=== PATIENT | male | born 1975 | race Caucasian/White ===

== ENCOUNTER 2021-01-02 09:27 | Emergency (ER) | payer BC, SELFPAY ==
[2021-01-02 09:32] VITALS: BP 139/82; PULSE 68; RESP 20; TEMP 36.1; O2SAT 98
--- NOTE | 2021-01-02 09:39 | ED.EYEPROB ---
HPI - Eye Problem General Chief complaint: Eye Problems Stated complaint: Swollen left Eye Time Seen by Provider: 01/02/21 09:40 Source: patient and family History of Present Illness HPI Narrative: PATIENT PRESENTS WITH LEFT EYE DRAINAGE AND LOWER LID SWELLING NO INJURY NO VISION LOSS. PATIENT REPORTS WORKING OUT IN THE YARD YESTERDAY AND THINKS HE HAS POISON LIZZIE TO HIS LEFT LOWER LEG AND FEELS THAT HE SCRATCHED HIS LEG IN HIS SLEEP AND THEN RUBBED HIS EYE. EYE MATTED SHUT THIS AM AND SOME SWELLING BELOW EYE. chief complaint: eye redness Place: home Associated symptoms: none Treatments Prior to Arrival: none Related Data Allergies Allergy/AdvReac Type Severity Reaction Status Date / Time No Known Allergies Allergy Unknown Verified 01/02/21 09:42 Review of Systems Review of Systems: Narrative: CONSTITUTIONAL: Denies fever, chills, or sweats. EYES: Denies visual changes, redness, or discharge. ENT: Denies rhinorrhea, congestion, sore throat, or otalgia. CARDIOVASCULAR: Denies chest pain, palpitations, or edema. RESPIRATORY: Denies cough or dyspnea. GASTROINTESTINAL: Denies abdominal pain, nausea, vomiting, or diarrhea. GENITOURINARY: Denies dysuria or hematuria. SKIN: Denies rash or itching. MUSCULOSKELETAL: Denies back pain, joint pain, or myalgia. NEUROLOGIC: Denies headache, numbness, or weakness. PSYCHIATRIC: Denies anxiety or depression. PMFSH Comments At time of signature, agree with nursing past medical, surgical, social and family history. There is no relevant family history pertinent to the presenting complaint Exam Narrative: Exam Narrative: GENERAL: Well-appearing, well-nourished, and in no acute distress. HEAD: Normocephalic, atraumatic. EYES: PERRLA and EOMI. ENT: Nares clear, no rhinorrhea or epistaxis. Mucous membranes moist. NECK: Supple. CHEST: Clear to auscultation. No respiratory distress. HEART: Regular rate and rhythm. No murmur heard. Normal peripheral pulses. ABDOMEN: Soft, nontender, nondistended, normal active bowel sounds. EXTREMITIES: Normal range of motion. No edema. SKIN: Warm, dry, no rash. NEURO: No focal deficits. Alert and oriented x3. [place] Coma Scale Eye Opening: Spontaneous 4 Elaine Coma Scale Motor: Obeys Commands 6 [place] Coma Scale Verbal: Oriented 5 Elaine Coma Scale Total 15 Eyes: Periorbital: periorbital findings abnormal (SLIGHT SWELLING BELOW LEFT EYE) Conjunctivae: conjunctival abnormality (SCANT DRAINAGE TO CORNER OF LEFT EYE AND CONJUCTIVITIS TO LEFT EYE) Sclera: sclerae normal Cornea: corneas normal Pupils: Equal, round and reactive pupils present EOM: EOMs intact bilaterally Direct Ophthalmoscopy: normal light reflex Eyes/upper lids images: 1. SLIGHT SWELLING 2. SCANT DRAINAGE Course Vital Signs Vital signs: Vital Signs Temperature 36.1 C L 01/02/21 09:32 Pulse Rate 68 01/02/21 09:32 Respiratory Rate 20 01/02/21 09:32 Blood Pressure 139/82 01/02/21 09:32 Pulse Oximetry 98 01/02/21 09:32 Temperature 36.1 C L 01/02/21 09:32 Pulse Rate 68 01/02/21 09:32 Respiratory Rate 20 01/02/21 09:32 Blood Pressure 139/82 01/02/21 09:32 Pulse Oximetry 98 01/02/21 09:32 Please MARINA schedule a followup visit with your personal physician for further evaluation and treatment. Including recheck and discussion of your blood pressure. If your symptoms persist, change or worsen significantly before you can contact your personal physician then please, without delay, go to the emergency department for further evaluation Critical dx considered and discussed with pt. Educated patient on red flag s/s and to go to ED if s/s occur. Discussed with pt when to return to Express Care or primary care provider. Pt gave verbal undertstanding, all questions were answered, and pt was agreeable to plan MDM - Eye Problem Differential Diagnosis Differential diagnosis: Likely corneal abrasion, conjunctivitis, acute iritis, hyphema, periorbital cellul
== END 2021-01-02 09:58 | disposition home or self-care (01) ==
PROVIDERS: Emergency Provider Nurse Practitioner Family
DX: L03.213 Periorbital cellulitis (principal); H10.9 Unspecified conjunctivitis
CPT/HCPCS: 99213; G0463

== ENCOUNTER 2022-03-01 08:03 | Emergency (ER) | payer BC, SELFPAY ==
[2022-03-01 08:07] VITALS: BP 140/89; PULSE 75; RESP 16; TEMP 36.1; O2SAT 97
--- NOTE | 2022-03-01 08:15 | ED.URI ---
HPI - URI/Sore Throat General Chief Complaint: Upper Respiratory Infection Stated Complaint: sore throat Time Seen by Provider: 03/01/22 08:10 Source: patient and RN notes reviewed History of Present Illness HPI Narrative: Patient is a 46-year-old male who presents the urgent care with complaints of a sore throat and mild cough. Patient states that it started yesterday with fatigue and woke up with a severe sore throat. Patient states that his son at home is currently positive for strep and was diagnosed on . Patient denies any fevers or other upper respiratory complaints. No acute distress noted. Patient aware of plan of care. Some parts of this dictation were generated by voice recognition software and may contain typographical and/or grammatical inaccuracies. Related Data Allergies Allergy/AdvReac Type Severity Reaction Status Date / Time No Known Allergies Allergy Unknown Verified 03/01/22 08:14 Review of Systems Review of Systems: CONSTITUTIONAL: Denies fever, chills, or sweats. EYES: Denies visual changes, redness, or discharge. ENT: Denies rhinorrhea, congestion, otalgia. Reports of sore throat CARDIOVASCULAR: Denies chest pain, palpitations, or edema. RESPIRATORY: Denies cough or dyspnea. GASTROINTESTINAL: Denies abdominal pain, nausea, vomiting, or diarrhea. GENITOURINARY: Denies dysuria or hematuria. SKIN: Denies rash or itching. MUSCULOSKELETAL: Denies back pain, joint pain, or myalgia. NEUROLOGIC: Denies headache, numbness, or weakness. All other systems reviewed are negative, except as documented in HPI. PMFSH Comments At the time of my signature, I reviewed and agree with the nursing past medical, surgical, social, and family history. There is no relevant family history pertinent to the patient complaint. Exam Narrative: GENERAL: This is a well-nourished, well-developed patient, in no apparent distress. HEAD: normocephalic, atraumatic. EYES: PERRL. Sclera clear/white. Vision is grossly intact. EARS: External ears normal, auditory canals clear and without drainage, cerumen noted bilaterally. TMs normal without perforation. Hearing grossly intact. NOSE: External nose normal with no obvious nasal discharge, nares without redness, no rhinorrhea. THROAT: Mucous membranes moist. Moderate erythema noted posterior pharynx with moderate postnasal drainage without exudate or ulceration NECK: Neck supple, non-tender bilateral submandibular lymphadenopathy CARDIOVASCULAR: Regular rate and rhythm without murmurs, gallops, or rubs. RESPIRATORY: Clear to auscultation. Breath sounds equal bilaterally. No wheezes, rales, or rhonchi. SKIN: warm, intact with no suspicious lesions or rash, good texture and turgor. NEURO: awake, alert, and oriented to person, place and time. There were no obvious focal neurologic abnormalities. EXTREMITIES: No clubbing, cyanosis, or edema. Course Course Level of Care: Express Care Visit Vital Signs Vital signs: Vital Signs Temperature 96.9 F L 03/01/22 08:07 Pulse Rate 75 03/01/22 08:07 Respiratory Rate 16 03/01/22 08:07 Blood Pressure 140/89 03/01/22 08:07 Pulse Oximetry 97 03/01/22 08:07 Oxygen Delivery Room Air 03/01/22 08:07 Temperature 96.9 F L 03/01/22 08:07 Pulse Rate 75 03/01/22 08:07 Respiratory Rate 16 03/01/22 08:07 Blood Pressure 140/89 03/01/22 08:07 Pulse Oximetry 97 03/01/22 08:07 Oxygen Delivery Room Air 03/01/22 08:07 Reviewed MDM - URI/Sore Throat MDM Narrative Medical decision making narrative: Advised the patient to complete the oral antibiotic regimen as prescribed. Be sure to eat and drink with medication. Increase your water intake and rest. You are considered contagious for up to 24 hours after the start of medication as long as you have been fever free for 24 hours, without fever reducers. Be sure to change her toothbrush within 2 to 3 days. Follow-up with your PCP within 2 to 5 days or for worsening sympt
== END 2022-03-01 08:27 | disposition home or self-care (01) ==
PROVIDERS: Emergency Provider Nurse Practitioner Family
DX: J02.9 Acute pharyngitis, unspecified (principal); Z20.818 Contact with and (suspected) exposure to other bacterial communicable diseases; Z86.16 Personal history of COVID-19
CPT/HCPCS: 99213; G0463

== ENCOUNTER 2024-10-15 17:32 | Emergency (ER) | payer BC, SELFPAY ==
--- NOTE | ~2024-10-15 | XR_ITS ---
HISTORY: fell down steps, LT lateral pain COMPARISON: None TECHNIQUE: 3 views of the left ankle were performed FINDINGS: Significant lateral soft tissue swelling with indeterminate heterogeneous density within the distal f ibula which may represent prior fracture deformity. No acute displaced fracture is appreciated. IMPRESSION: Significant soft tissue swelling over the lateral malleolus with indeterminate heterogen eous density within the distal fibula which may represent prior fracture deformity. Reviewed, dictated and finalized at location A. IMPRESSION: Significant soft tissue swelling over the lateral malleolus with i ndeterminate heterogeneous density within the distal fibula which may represent prior fracture deformity.
--- OUTSIDE RECORDS SUMMARY | 2024-10-15 17:34 | XMS_ITS | Clinical Summary ---
Author Organization [facility] Address [address] [place] [address] Care Team Providers Care Long Term Care Administrator Name Role Phone No, Physician Primary Care Provider [phone] Allergies No known active allergies Medications No known medications Active Problems Problem Noted Date Diagnosed Date COVID-19 virus infection 09/13/2022 Social History Tobacco Use Types Packs/Day Years Used Date Smoking Tobacco: Never Assessed Personal Safety Answer Date Recorded Getting School Help Needed Not on file 09/24 Sex and Gender Information Value Date Recorded Sex Assigned at Not on file Legal Sex Male 12:01 PM ONLINE MERCHANT Gender Identity Not on file Sexual Orientation Not on file Last Filed Vital Signs Vital Sign Reading Time Taken Comments Blood Pressure 149/72 09/13/2022 5:37 PM ONLINE MERCHANT Pulse 101 09/13/2022 5:37 PM ONLINE MERCHANT Temperature 37.6 C (99.6 F) 09/13/2022 5:37 PM ONLINE MERCHANT Respiratory Rate 20 09/13/2022 5:37 PM ONLINE MERCHANT Oxygen Saturation 97% 09/13/2022 5:37 PM ONLINE MERCHANT Inhaled Oxygen Concentration - - Weight 127 kg (280 lb) 09/13/2022 5:37 PM ONLINE MERCHANT Height - - Body Mass Index - - Plan of Treatment Health Maintenance Due Date Last Done Comments Colon Cancer Screening-Colonoscopy 1975 Depression Screening 1975 Hepatitis C Screening 1975 DTaP/Tdap/Td Vaccine (1 - Tdap) 10/02/1987 Hepatitis B Screening 1994 Regular Well Visit/Exam 18-64 1994 Influenza Vaccine (#1) 2024 Pneumococcal vaccine <65 Aged Out No longer eligible based on patient's age to complete this topic Insurance [employer] Care Teams Long Term Care Administrator Relationship Specialty Start Date End Date No, Physician PCP - General 09/13/22
--- OUTSIDE RECORDS SUMMARY | 2024-10-15 17:34 | XMS_ITS | Clinical Summary ---
Author Organization [facility] Address [address] [place] [address] Phone Care Team Providers Care Pickler Helper Name Role Phone Provider, None Primary Care Provider Unavailabl e Allergies No known active allergies Medications ondansetron (ZOFRAN) 4 MG Tablet Take 1-2 Tablets by mouth every 8 hours as needed for Nausea - 1st line. 10 Tablet 3 Active albuterol 108 (90 Base) MCG/ACT Aerosol Solution take 2 Puffs by inhalation every 6 hours as needed for Wheezing or Cough. 8 g 3 Active Social History Tobacco Use Types Packs/Day Years Used Date Smoking Tobacco: Never Smokeless Tobacco: Never Tobacco Cessation:Counseling Given: Not Answered Alcohol Use Standard Drinks/Week Comments Never 0 (1 standard drink = 0.6 oz pur e alcohol) Sex and Gender Information Value Date Recorded Sex Assigned at Not on file Legal Sex Male 11:31 PM CDT Gender Identity Not on file Sexual Orientation Not on file Last Filed Vital Signs Vital Sign Reading Time Taken Comments Blood Pressure 142/104 09/02/2023 12:15 AM PLUCK SEPARATOR Pulse 76 09/02/2023 12:15 AM PLUCK SEPARATOR Temperature 35.9 C (96.7 F) 09/01/2023 9:49 PM PLUCK SEPARATOR Respiratory Rate 19 09/01/2023 9:49 PM PLUCK SEPARATOR Oxygen Saturation 96% 09/02/2023 12:15 AM PLUCK SEPARATOR Inhaled Oxygen Concentration - - Weight 124.7 kg (275 lb) 09/01/2023 9:49 PM PLUCK SEPARATOR Height 170.2 cm (5' 7 ) 09/01/2023 9:49 PM PLUCK SEPARATOR Body Mass Index 43.07 09/01/2023 9:49 PM PLUCK SEPARATOR Plan of Treatment Health Maintenance Due Date Last Done Comments Hepatitis C Virus (HCV) Screening 1975 TdaP Immunization 1975 Hepatitis B Immunization (1 of 3 - 19+ 3-dose series) 10/02/1995 Colonoscopy 2021 Colorectal Cancer Screening 2021 Influenza Immunization (#1) 2024 SARS-COV-2 Immunization ( season) 2024 Respiratory Syncytial Virus (RSV) Immunization (Adult) (1 - 1-dose 75+ series) 10/02/2051 Meningococcal Immunization (ACWY) Aged Out No longer eligible based on patient's age to complete this topic Pneumococcal Immunization Combined Aged Out No longer eligible based on patient's age to complete this topic Rotavirus Immunization Aged Out No lo nger eligible based on patient's age to complete this topic Insurance Care Teams Pickler Helper Relationship Specialty Start Date End Date Provider, None [place] PCP - General 07/26/21
--- OUTSIDE RECORDS SUMMARY | 2024-10-15 17:34 | XMS_ITS | Referral Summary ---
Author Organization [facility] Address [address] [place] [id number] Care Team Providers Care Train System Operator Name Role Phone No, Physician Primary Care Provider [phone] Allergies No known active allergies Medications No [...] on file Legal Sex Male 12:01 PM RIVET BUCKER Gender Identity Not on file Sexual Orientation Not on file Last Filed Vital Signs Vital Sign Reading Time Taken Comments Blood Pressure 149/72 09/13/2022 5:37 PM RIVET BUCKER Pulse 101 09/13/2022 5:37 PM RIVET BUCKER Temperature 37.6 C (99.6 F) 09/13/2022 5:37 PM RIVET BUCKER Respiratory Rate 20 09/13/2022 5:37 PM RIVET BUCKER Oxygen Saturation 97% 09/13/2022 5:37 PM RIVET BUCKER Inhaled Oxygen Concentration - - Weight 127 kg (280 lb) 09/13/2022 5:37 PM RIVET BUCKER Height - - Body Mass Index - - Plan of Treatment Not on file Insurance [employer] OOS [employer] O[employer] Care Teams Train System Operator Relationship Specialty Start Date End Date No, Physician PCP - General 09/13/22
[2024-10-15 17:45] VITALS: BP 142/97; PULSE 81; RESP 20; TEMP 36.8; O2SAT 96
--- NOTE | 2024-10-15 18:10 | ED_ITS ---
HPI - Extremity Injury (Lower) General Chief Complaint: Extremity Injury, Lower Stated Complaint: Left Ankle Injury Time Seen by Provider: 10/15/24 18:10 Source: patient, RN notes reviewed and old records reviewed Mode of arrival: ambulatory (placed in wheelchair on arrival to clinic) Limitations: no limitations History of Present Illness HPI Narrative: 49 year old male accompanied by presents to express care with complaints of slipping on steps at home and falling onto his left leg about 30 minutes prior to arrival. Patient reports that he has acute pain in his lateral ankle region from fall with pain and increased discomfort with any movement of left ankle and any weight bearing. Patient reports that he has not had any previous known injury to his left ankle or known fracture of his ankle. Patient has strong left pedal pulse present. MD complaint: ankle injury Onset (ago): hour(s) (30 minutes prior to arrival) Injury: Left: ankle (lateral) Type of Injury: blunt Place: home Severity scale (1-10): 7 Exacerbating factors: weight bearing and movement Associated symptoms: swelling, able to partially bear weight and other (pain) Related Data Allergies Allergy/AdvReac Type Severity Reaction Status Date / Time No Known Allergies Allergy Unknown Verified 10/15/24 17:53 Review of Systems Review of Systems: CONSTITUTIONAL: Denies fever, chills, or sweats. EYES: Denies visual changes, redness, or discharge. ENT: Denies rhinorrhea, congestion, sore throat, or otalgia. CARDIOVASCULAR: Denies chest pain, palpitations, or edema. RESPIRATORY: Denies cough or dyspnea. GASTROINTESTINAL: Denies abdominal pain, nausea, vomiting, or diarrhea. GENITOURINARY: Denies dysuria or hematuria. SKIN: Denies rash or itching. MUSCULOSKELETAL: Denies back pain,positive for left lateral ankle pain and swelling from injury, or myalgia. NEUROLOGIC: Denies headache, numbness, or weakness. PSYCHIATRIC: Denies anxiety or depression. All systems reviewed & are unremarkable except as noted in HPI and below PMFSH Past Medical History Medical History (Updated 10/17/24 @ 08:53 by Jessica Choudhary NP) Closed boxer's fracture Tobacco abuse Bronchitis Surgical History Surgical History (Updated 10/17/24 @ 08:51 by Jessica Choudhary NP) History of tonsillectomy Social History Social History (Updated 10/17/24 @ 09:00 by Jessica Choudhary NP) Smoking packs per day: 1 Smoking cigarettes per day: 20.0 Years smoked: 25 Smoking pack-years: 25.00 Smoking status: Current every day smoker Tobacco type: e-cigarettes/vaping Additional smoking assessment comments: former cigarette use quit 2014 now vapes Alcohol intake: current Alcohol use details: social Substance use type: does not use Living arrangements: with family Gender identity (if verbalized by the patient): Male Comments At time of signature, agree with nursing past medical, surgical, social and family history. There is no relevant family history pertinent to the presenting complaint Exam Narrative: GENERAL: Well-appearing, well-nourished, and in no acute distress. HEAD: Normocephalic, atraumatic. EYES: PERRLA and EOMI. ENT: Nares clear, no rhinorrhea or epistaxis. Mucous membranes moist.TM's normal throat pink with no lesions or swelling NECK: Supple. no lymphadenopathy CHEST: Clear to auscultation. No respiratory distress. no cough or congestion noted SAO2 96% on room air HEART: Regular rate and rhythm. No murmur heard. Normal peripheral pulses. ABDOMEN: Soft, nontender, nondistended, normal active bowel sounds. EXTREMITIES: Normal range of motion. No edema.Exception noted to left ankle region with lateral swelling noted to ankle with pain with palpation and any attempted movement of left ankle, left foot has strong pedal pulse with patient reporting no tingling or numbness reported in foot, nail beds ronna briskly of left foot. SKIN: Warm, dry, no rash. NEURO: No focal deficits. Alert and oriented x3. Course Course Emergency Course: Patient is aware of diagnosis, understands and agrees to treatment plan.? Anticipatory guidance given.? Patient agrees to follow-up as directed and is aware of reasons to seek care at the emergency department. Portions of this record may have been created with voice recognition software Level of Care: Express Care Visit Vital Signs Vital signs: Vital Signs Temperature 36.8 C 10/15/24 17:45 Pulse Rate 81 10/15/24 17:45 Respiratory Rate 20 10/15/24 17:45 Blood Pressure 142/97 H 10/15/24 17:45 Pulse Oximetry 96 10/15/24 17:45 Oxygen Delivery Room Air 10/15/24 17:45 Temperature 36.8 C 10/15/24 17:45 Pulse Rate 81 10/15/24 17:45 Respiratory Rate 20 10/15/24 17:45 Blood Pressure 142/97 H 10/15/24 17:45 Pulse Oximetry 96 10/15/24 17:45 Oxygen Delivery Room Air 10/15/24 17:45 Reviewed Procedures Orthopedic Splinting/Casting ankle: Splinting/Casting Date: 10/15/24 Splinting/Casting Time: 19:43 Side: left Lower Extremity Injury Location: ankle Lower Extremity Immobilizer: posterior splint Splint: customized in ED OCL: short leg Pre-Procedure Neuro Vascular Exam: normal Post-Procedure Neuro Vascular Exam: normal Other Orthopedic Equipment: crutches (crutch training) Additional Comments: Patient tolerated splinting of left ankle with short leg posterior OCL applied and patient received crutch training and was able to demonstrate return NWB ambulation with crutches satisfactorily. MDM - Extremity Injury (Lower) Differential Diagnosis Differential diagnosis: Likely ankle sprain and strain, ankle fracture and other (acute soft tissue swelling left lateral ankle, acute left ankle pain) Medical Records Attestation: I reviewed the patient's medical records. Imaging Data Attestation: I personally reviewed and interpreted this imaging study as follows: My impression: soft tissue swelling to lateral left ankle indeterminant heterogeneous density in distal fibula which may indicate old fracture or new finding Radiologist's impression: [place] [id number] XRay Report Signed Patient: Jose Moran : 1975 MR#: [id number] Age: 49 Acct:[id number] Loc: [facility] ADM Date: 10/15/24Attending Dr: Ordering Physician: Jessica Choudhary APRN Date of Service: 10/15/24 Procedure(s): XR ankle LT min 3V Accession Number(s): [id number] cc: METAL FURNITURE POLISHER PHYSICIAN; Jessica Choudhary APRN~ HISTORY: fell down steps, LT lateral pain COMPARISON: None TECHNIQUE: 3 views of the left ankle were performed FINDINGS: Significant lateral soft tissue swelling with indeterminate heterogeneous density within the distal fibula which may represent prior fracture deformity. No acute displaced fracture is appreciated. IMPRESSION: Significant soft tissue swelling over the lateral malleolus with indeterminate heterogeneous density within the distal fibula which may represent prior fracture deformity. Reviewed, dictated and finalized at location A. Please be advised this is a medical document. It is intended for xtio-up-akfo communication. It is written in medical language and may contain unfamiliar abbreviations or verbiage. Medical documents are intended to carry relevant information, facts as evident, and the clinical opinion of the practitioner at the time of the encounter. This report may have been done utilizing a voice recognition system. Attempts have been made to correct errors. However, there may be uncorrected grammatical, spelling, and recognition errors present. The file time of this note does not necessarily represent the time of service. Dictated By: Rema Shafer MD 10/15/24 0548 Signed By: <Electronically signed by Rema Shafer MD in OV> Critical Care Time Critical Care Time Critical Care Time: No Discharge Plan Discharge Clinical Impression: Pain and swelling of left ankle Fracture of distal fibula Qualifiers: Encounter type: initial encounter Fracture type: closed Fracture morphology: unspecified fracture morphology Laterality: left Qualified Code(s): S82.832A - Other fracture of upper and lower end of left fibula, initial encounter for closed fracture Patient Disposition: Home Condition: Stable Instructions: Antibiotic Form, Ankle Fracture (ED) Additional Instructions: orthopedic splint as directed until seen by orthopedic Crutches as directed if needed Tylenol for lesser pain Ibuprofen regularly for the next 2-3 days for the inflammation pain medication as ordered, Follow-up with orthopedic surgeon call Dr. Pardo call office to set up appointment [phone] located at [facility] Follow-up with PCP if further problems or concerns Ice to the area 20-30 minutes 4-6 times a day Elevate above heart If your symptoms persist, change or worsen significantly before you can contact your personal physician then please, without delay, go to the emergency department for further evaluation. Follow-up with PCP in 7-10 days or sooner if needed Follow up with PCP soon in regards to your blood pressure which is elevated above threshold for referral. Blood pressure above 120/80 may indicate pre- hypertension. 142/97 Patient Language: Montserratian Prescriptions: New hydrocodone-acetaminophen 10-325 mg tablet 1 tablet PO Q6H PRN (Reason: pain) Qty: 10 0RF Follow-up/Referrals: Misha Pardo MD [Physician] - 1 Week (x-ray report not definitive for fracture and patient reports no known previous fracture of left fibula, pain and swelling lateral left ankle. Needs follow up evaluation is splinted and placed on crutches.. Thank you ) PHYSICIAN,METAL FURNITURE POLISHER [Primary Care Provider] - Stand Alone Forms: Work/School Release IP Time of Disposition: 19:49 Quality [place] Coma Scale Eyes: Open Verbal: Oriented and Alert Motor: Follows Commands [place] Coma Total Score: 15
== END 2024-10-15 20:15 | disposition home or self-care (01) ==
PROVIDERS: Emergency Provider Registered Nurse
DX: S82.832A Other fracture of upper and lower end of left fibula, initial encounter for closed fracture (principal); W10.9XXA Fall (on) (from) unspecified stairs and steps, initial encounter; F17.290 Nicotine dependence, other tobacco product, uncomplicated
CPT/HCPCS: 29515; 73610; 99213; 99214; G0463

== ENCOUNTER 2024-10-23 14:17 | Outpatient (CLI) | payer BC, SELFPAY ==
--- NOTE | ~2024-10-23 | CT_ITS ---
EXAMINATION: CT ankle LT wo con DATE: 10/23/2024 14:39 INDICATION: Left ankle fracture post fall down stairs TECHNIQUE: High resolution computed tomography (CT) of the left ankle was performed without intraveno us contrast. Additional sagittal and coronal reconstructions were performed. Automated exposure contr ol and iterative reconstruction technique were employed. The dose-length product was 184.33 mGy-cm. COMPARISON: Radiographs dated 10/15/2024 FINDINGS: 3 mm distraction of the anterior margin of the avulsion fracture at the anteromedial margin of the ti bial plafond involving the footplate of the anterior-inferior tibiofibular ligament. The 1 mm distrac tion of an additional avulsion fracture along the anterior distal tip of the medial malleolus involvi ng the footplate of the anterior deep deltoid ligament. No other fractures identified. Alignment is o therwise unremarkable. 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 There is a juxta articular erosion at the medial head of the first metatarsal with overhangin g edges with classic location and appearance for gout. Small Achilles calcaneal spur and moderate-siz ed plantar calcaneal spur. There is thickening of the anterior talofibular ligament suggestive of age -indeterminate sprain. There is soft tissue swelling about the ankle and extending over the dorsum of the foot. IMPRESSION: 1. Small minimally distracted avulsion fracture involving the distal tibial footplate of the anterior -inferior tibiofibular ligament and the medial malleolus footplate of the anterior deep deltoid ligam ent. 2. Small erosion at the medial head of the first metatarsal with classic location and appearance for gout. Reviewed, dictated and finalized at location A. IMPRESSION: 1. Small minimally distracted avulsion fracture involving the distal tibial aman tplate of the anterior-inferior tibiofibular ligament and the medial malleolus footplate of the anterior deep deltoid ligament. 2. Small erosion at the medial head of the first metatarsal with classic locati on and appearance for gout.
== END 2024-10-23 14:18 | disposition home or self-care (01) ==
LOC: MICIMG 14:18
PROVIDERS: PCP Orthopaedic Surgery; Visit Provider Orthopaedic Surgery
DX: S82.892D Other fracture of left lower leg, subsequent encounter for closed fracture with routine healing (principal); X58.XXXD Exposure to other specified factors, subsequent encounter
CPT/HCPCS: 73700